=== PATIENT | male | born 2000 | race Caucasian/White ===

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

== ENCOUNTER 2022-04-20 13:59 | Emergency (ER) | payer MEDICAID ==
[~2022-04-20] VITALS: Ht 175.3 cm; Wt 64.0 kg
[~2022-04-20 13:59] MED LIST changes: +CYCL-1 PO
[2022-04-20 14:18] VITALS: BP 110/64
[2022-04-20] MEDS ORDERED: LIDO700A32 TOP (15:45)
[2022-04-20] MEDS ORDERED: CYCL-1 PO (15:45)
[2022-04-20] MEDS ORDERED: ketorolac trometh inj. 60 MG/2 ML VIAL IM ONE (15:50)
[2022-04-20] MEDS ORDERED: orphenadrine citrate 60mg/2ml inj. IM ONE (15:50)
== END 2022-04-20 16:28 | disposition home or self-care (01) ==
LOC: ER 14:03
DX: S29.012A Strain of muscle and tendon of back wall of thorax, initial encounter (principal); Z88.0 Allergy status to penicillin; Z88.8 Allergy status to other drugs, medicaments and biological substances; Z79.899 Other long term (current) drug therapy; X58.XXXA Exposure to other specified factors, initial encounter; Y93.89 Activity, other specified; Y92.89 Other specified places as the place of occurrence of the external cause; Y99.8 Other external cause status
CPT/HCPCS: 96372; 99284; J1885; J2360